=== PATIENT | female | born 1965 | race Caucasian/White ===

== ENCOUNTER 2021-10-01 01:00 | Day surgery (SDC) | payer OTHER, SELFPAY ==
[2021-09-23 13:24] VITALS: BMI 30.2
--- NOTE | 2021-09-30 09:53 | PC.NURSE ---
LATE ENTRY 09/24/2021 0858 PTS CURRENT METHAMPHETAMINE USE DISCUSSED WITH [facility] COORDIN[facility] MILAN DUNN RN AND DR. CARMEN. DR. CARMEN IS OK TO PROCEED WITH PROCEDURE AND TO INSTRUCT PT NOT TO TAKE ANY DRUGS TUES. OR WED (DAY OF PROCEDURE) DR. LARA CALLED AND UPDATED ON PTS METHAMPHETAMINE USE AND THAT ANESTHESIA IS OK TO PROCEED. 09/29/21 PT CALLED AND INSTRUCTED NOT TO TAKE ANY DRUGS TUES OR WED. PT STATES SHE HAS NOT TAKEN ANY SINCE 09/27/21 AND WILL NOT TAKE ANY TUES. OR WED.
--- NOTE | 2021-09-30 10:11 | PC.NURSE ---
SPOKE WITH DR. HODGES ANESTHESIA TODAY REGARDING THIS PATIENT AND HER KNOWN CURRENT DRUG USE, NO ORDERS RECEIVED.
[2021-10-01 10:18] VITALS: BP 144/86; PULSE 96; RESP 18; TEMP 36.4; O2SAT 100
[2021-10-01] MEDS: LACTATED RINGERS 1,000 ML 150 ML IV CONT (10:27)
--- NOTE | 2021-10-01 10:44 | WPDANESEPPF ---
Anes - Initial Pre Proc Eval Procedure: Operation Date: 10/01/21 13:45 Proposed Procedures p Esophagogastroduodenoscopy & Colonoscopy - Jose Guadalupe Keita MD Date/Time: 10/01/21 10:44 Surgeon: Jose Guadalupe Keita MD Pre Op Diagnosis: GERD, constipation Patient Data Age: 56 Gender: F Height: 1.68 m Weight: 84.1 kg Last Vital Signs Temp 97.6 F 10/01/21 10:18 Pulse 96 10/01/21 10:18 Resp 18 10/01/21 10:18 BP 144/86 H 10/01/21 10:18 Pulse Ox 100 10/01/21 10:18 Allergies Allergy/AdvReac Type Severity Reaction Status Date / Time hepatitis B virus vaccine Allergy Severe RASH Verified 10/01/21 10:16 Contrast Media Allergy Severe RASH,SWELLI Uncoded 10/01/21 10:[address] DYE Allergy Severe RASH. Uncoded 10/01/21 10:16 SWELLING Home Medications Medication Instructions Recorded Confirmed Type linaclotide 145 mcg capsule 145 mcg PO DAILY #30 cap 07/10/21 09/23/21 Rx acetaminophen 500 mg tablet 1,000 mg PO .PRN PRN tablet 07/11/21 09/23/21 History albuterol sulfate 1.25 mg/3 mL 1.25 mg INHALATION .PRN PRN ml 07/11/21 09/23/21 History solution for nebulization albuterol sulfate 90 mcg/actuation 1 puff INHALATION Q4H PRN 07/11/21 09/23/21 History aerosol inhaler bupropion HCl 150 mg 24 hr tablet, 150 mg PO QAM 07/11/21 09/23/21 History extended release clonidine HCl 0.2 mg tablet 0.2 mg PO DAILY 07/11/21 09/23/21 History docusate sodium 100 mg capsule 300 mg PO DAILY cap 07/11/21 09/23/21 History fluticasone furoate 200 1 inh INHALATION DAILY 07/11/21 09/23/21 History mcg-vilanterol 25 mcg/dose inhalation powder gabapentin 600 mg tablet 600 mg PO TID 07/11/21 09/23/21 History ibuprofen 200 mg tablet 800 mg PO .PRN PRN tablet 12/03/21 02/15/22 History montelukast 10 mg tablet 10 mg PO DAILY 07/11/21 09/23/21 History pravastatin 40 mg tablet 40 mg PO DAILY 07/11/21 09/23/21 History rizatriptan 5 mg tablet 5 mg PO ONCE PRN 07/11/21 09/23/21 History sertraline 150 mg capsule 150 mg PO DAILY 07/11/21 09/23/21 History topiramate 50 mg tablet 50 mg PO DAILY tablet 07/11/21 10/01/21 History trazodone 100 mg tablet 100 mg PO HS PRN tablet 07/11/21 09/23/21 History pantoprazole 40 mg tablet,delayed 40 mg PO QAM 30 Days #30 tablet 09/12/21 09/23/21 Rx release Patient hx anesthesia problems: none Family hx anesthesia problems: none Results Review: All pre-operative results and documents have been reviewed as part of the pre-operative evaluation. PENDING SALE TO [facility] Past Medical History Medical History (Updated 07/10/21 @ 15:43 by Jose Guadalupe Keita MD) Alcoholism in remission Constipation Drug addiction in remission Irritable bowel syndrome with constipation Social History Social History Smoking packs per day: 1 Smoking cigarettes per day: 20.0 Years smoked: 34 Smoking pack-years: 34.00 Smoking status: Former smoker Tobacco type: cigarettes and e-cigarettes/vaping Additional smoking assessment comments: SMOKES A VAPE OCCASSIONALY Alcohol intake: former Substance use: current Substance use type: methamphetamine Other substance usage details: SEVERAL DAYS A WEEK- STARTED 6 MONTHS AGO Last use: 09/23/2021 Living arrangements: with family Spiritual care concerns: No Anes - Eval Final PreProcedure Day of Procedure 10/01/21 10:44 Patient weight: overweight Heart: regular rate and rhythm Lungs: clear to auscultation Airway: Mallampati scale class II Neurological: alert and oriented Last oral intake: >/= 8 hours ASA classification: III Emergent: no Anesthetic plan: proceed Anesthesia type and monitoring: general GIVS and standard monitoring Results Review: All pre-operative results and documents have been reviewed as part of the pre-operative evaluation. Informed Consent: The patient's anesthetic plan and its attendant risks and benefits were discussed with the patient/
--- NOTE | 2021-10-01 11:05 | PM.HPGS ---
History of Present Illness History of Present Illness Consent: Risks, benefits, and alternatives have been discussed and questions answered. Patient agrees to proceed with procedure. Chief complaint: GERD, constipation Narrative: Allyn Ochoa is a 56 year old female here for egd and colonoscopy. She has longstanding gerd on protonix daily for years, her last egd over 7-8 years ago. Last colonoscopy 10 years ago, chronic constipation Review of Systems Constitutional: Constitutional: Denies headache(s) and Denies weakness Eyes: Eyes: Denies blurry vision ENT: Reports Normal hearing present, Denies headache(s) and Denies neck pain Cardiovascular: Cardiovascular: Denies chest pain and Denies dyspnea Respiratory: Respiratory: Denies dyspnea Gastrointestinal: Gastrointestinal: Reports no additional gastrointestinal complaints Genitourinary: Genitourinary: Denies dysuria Musculoskeletal: Musculoskeletal: Denies neck pain Integumentary/Breasts: Skin/Breast: Denies dry skin Neurologic: Reports Normal hearing present, Denies headache(s) and Denies weakness Psychiatric: Psychiatric: Denies anxiety Endocrine: Endocrine: Denies change in body appearance Hematologic/Lymphatic: Hematologic/Lymphatic: Denies easy bleeding Allergic/Immunologic: Allergic/Immunologic: Denies urticaria PMF Past Medical History Medical History (Updated 10/01/21 @ 11:06 by Jose Guadalupe Keita MD) Alcoholism in remission Colon cancer screening Constipation Drug addiction in remission GERD (gastroesophageal reflux disease) Irritable bowel syndrome with constipation Social History Social History Smoking packs per day: 1 Smoking cigarettes per day: 20.0 Years smoked: 34 Smoking pack-years: 34.00 Smoking status: Former smoker Tobacco type: cigarettes and e-cigarettes/vaping Additional smoking assessment comments: SMOKES A VAPE OCCASSIONALY Alcohol intake: former Substance use: current Substance use type: methamphetamine Other substance usage details: SEVERAL DAYS A WEEK- STARTED 6 MONTHS AGO Last use: 09/23/2021 Living arrangements: with family Spiritual care concerns: No Meds Home Medications and Allergies Home Medications Medication Instructions Recorded Confirmed Type linaclotide 145 mcg capsule 145 mcg PO DAILY #30 cap 07/10/21 09/23/21 Rx acetaminophen 500 mg tablet 1,000 mg PO .PRN PRN tablet 07/11/21 09/23/21 History albuterol sulfate 1.25 mg/3 mL 1.25 mg INHALATION .PRN PRN ml 07/11/21 09/23/21 History solution for nebulization albuterol sulfate 90 mcg/actuation 1 puff INHALATION Q4H PRN 07/11/21 09/23/21 History aerosol inhaler bupropion HCl 150 mg 24 hr tablet, 150 mg PO QAM 07/11/21 09/23/21 History extended release clonidine HCl 0.2 mg tablet 0.2 mg PO DAILY 07/11/21 09/23/21 History docusate sodium 100 mg capsule 300 mg PO DAILY cap 07/11/21 09/23/21 History fluticasone furoate 200 1 inh INHALATION DAILY 07/11/21 09/23/21 History mcg-vilanterol 25 mcg/dose inhalation powder gabapentin 600 mg tablet 600 mg PO TID 07/11/21 09/23/21 History ibuprofen 200 mg tablet 800 mg PO .PRN PRN tablet 07/11/21 09/23/21 History montelukast 10 mg tablet 10 mg PO DAILY 07/11/21 09/23/21 History pravastatin 40 mg tablet 40 mg PO DAILY 07/11/21 09/23/21 History rizatriptan 5 mg tablet 5 mg PO ONCE PRN 07/11/21 09/23/21 History sertraline 150 mg capsule 150 mg PO DAILY 07/11/21 09/23/21 History topiramate 50 mg tablet 50 mg PO DAILY tablet 07/11/21 10/01/21 History trazodone 100 mg tablet 100 mg PO HS PRN tablet 07/11/21 09/23/21 History pantoprazole 40 mg tablet,delayed 40 mg PO QAM 30 Days #30 tablet 09/12/21 09/23/21 Rx release Allergies Allergy/AdvReac Type Severity Reaction Status Date / Time hepatitis B virus vaccine Allergy Severe RASH Verified 10/01/21 10:16 Contrast Media Allergy Severe RASH,SWELLI Uncoded 02
[2021-10-01 11:41] VITALS: BP 133/80; PULSE 87; RESP 24; O2SAT 100
--- NOTE | 2021-10-01 11:48 | SUR.OPER ---
EGD start 1115 end 1118 COLON start 1124 end 1137
[2021-10-01 11:51] VITALS: BP 132/85; PULSE 80; RESP 17; O2SAT 100
[2021-10-01 12:01] VITALS: BP 118/78; PULSE 79; RESP 16; O2SAT 100
== END 2021-10-01 12:10 | disposition home or self-care (01) ==
PROVIDERS: Visit Provider Internal Medicine Gastroenterology
PROC: 0DJ08ZZ Inspection of Upper Intestinal Tract, Via Natural or Artificial Opening Endoscopic (ICD-10-PCS; CPT 43235; principal; 2021-10-01 12:30)
DX: Z12.11 Encounter for screening for malignant neoplasm of colon (principal); K21.9 Gastro-esophageal reflux disease without esophagitis; D12.5 Benign neoplasm of sigmoid colon; D12.3 Benign neoplasm of transverse colon; K20.90 Esophagitis, unspecified without bleeding; K29.50 Unspecified chronic gastritis without bleeding; K59.09 Other constipation; F10.21 Alcohol dependence, in remission; F19.21 Other psychoactive substance dependence, in remission; Z87.891 Personal history of nicotine dependence
CPT/HCPCS: 45385; 45380; 43239; 88305; J2704; J7120